=== PATIENT | male | born 1930 | race Caucasian/White ===

== ENCOUNTER 2021-03-28 09:20 | Emergency (ER) | payer OTHER ==
[~2021-03-28] VITALS: Ht 180.3 cm; Wt 86.2 kg
--- NOTE | 2021-03-28 09:26 | NUR ---
AMBULANCE BROUGHT PT IN FROM HOME. PATIENT COMPLAINED OF ALMOST PASSING OUT WHILE WASHING THE DISHES. DR ROME EXAMINED PT.
--- NOTE | 2021-03-28 09:27 | NUR ---
Received pt via ambulance, pt hesitant to transfer himself into the hospital [facility], ambulance staff lifted him and placed into to room 3.
--- NOTE | 2021-03-28 09:32 | NUR ---
taken pt to Radiology dept.
[2021-03-28 09:34] VITALS: BP_SYST 143
--- NOTE | 2021-03-28 09:45 | NUR ---
Returned pt to room 3.
--- NOTE | 2021-03-28 09:55 | NUR ---
[facility] [employer] AT BEDSIDE TO DRAW BLOOD.
[2021-03-28 10:14] LABS: BASOPHILS % (AUTO) 0.3 % (0.0-2.0); EOSINOPHILS # (AUTO) 0.1 K/uL (0.0-0.4); EOSINOPHILS % (AUTO) 2.7 % (0.0-4.0); HEMOGLOBIN 13.2 g/dL (14.0-18.0); LYMPHOCYTES # (AUTO) 0.7 K/uL (1.0-5.5); LYMPHOCYTES % (AUTO) 18.3 % (20.5-51.5); MEAN CORPUSCULAR HEMOGLOBIN 32 pg (27-31); MEAN CORPUSCULAR HGB CONC 33 % (32-36); MEAN CORPUSCULAR VOLUME 96 fL (79.0-98.0); MONOCYTES # (AUTO) 0.4 K/uL (0.0-1.0); MONOCYTES % (AUTO) 9.2 % (1.7-9.3); NEUTROPHILS # (AUTO) 2.7 K/uL (1.8-7.7); NEUTROPHILS % (AUTO) 69.5 % (40.0-70.0); PLATELET COUNT (AUTO) 135 K/uL (130-430); RED BLOOD CELL COUNT(AUTO) 4.17 MIL/uL (4.2-6.2); RED CELL DISTRIBUTION WIDTH 13.7 % (9.0-15.0); WHITE BLOOD COUNT (AUTO) 3.9 K/uL (4.8-10.8)
[2021-03-28 10:17] LABS: ANION GAP 7 (5-15); CALCIUM 9.3 mg/dL (8.4-11.0); CHLORIDE 101 mmol/L (98-107); CREATININE 0.91 mg/dL (0.55-1.30); GLUCOSE 95 mg/dL (70-99); POTASSIUM 3.9 mmol/L (3.5-5.1); SODIUM SERUM 138 mmol/L (136-145); UREA NITROGEN, BLOOD 19 mg/dL (8-21)
[2021-03-28 10:32] LABS: ALANINE AMINOTRANSFERASE 26 U/L (12-78); ALBUMIN 3.6 g/dL (3.4-4.8); ASPARTATE AMINOTRANSFERASE 34 U/L (10-37)
--- NOTE | 2021-03-28 12:15 | NUR ---
Patient given written and verbal discharge instructions and verbalizes understanding. ER MD ROME discussed with patient the results and treatment provided. Patient in stable condition. ID arm band removed. Patient educated on pain management and to follow up with PMD. Pain Scale 0. Opportunity for questions provided and answered. Medication side effect fact sheet provided.
[2021-03-28 15:20] VITALS: BP_SYST 114
== END 2021-03-28 15:20 | disposition home or self-care (01) ==
LOC: SED 09:20
DX: R55 Syncope and collapse (principal)
CPT/HCPCS: 36415; 70450-TC; 71045; 76376; 80053; 82550; 83605; 84484; 85025; 93005; 99285